=== PATIENT | female | born 1960 | race Hispanic/Latino ===

== ENCOUNTER 2019-12-17 10:31 | Outpatient (CLI) | payer MEDICARE | END 2019-12-17 10:32 | disposition home or self-care (01) | LOC: CTENTCT 10:31 | PROVIDERS: ATTEND Specialist | DX: J32.9 Chronic sinusitis, unspecified (principal); R04.0 Epistaxis; R51 Headache | CPT/HCPCS: 36415; 70486; 80053; 80061; 83036; 84443; 85025 ==